=== PATIENT | female | born 1995 | race Caucasian/White ===

== ENCOUNTER 2019-02-20 19:43 | Emergency (ER) | payer BC, OTHER ==
[~2019-02-20] VITALS: Ht 165.1 cm; Wt 63.5 kg
[2019-02-20] MEDS ORDERED: NOHOMEMEDICATIONS (19:55)
[2019-02-20] MEDS ORDERED: NAPROSYN500 M1 PO (20:32)
[2019-02-20] MEDS ORDERED: ULTRAM 50MG TAB50 MG PO (20:32)
[2019-02-20 20:50] VITALS: BP 119/65
== END 2019-02-20 20:50 | disposition home or self-care (01) ==
LOC: ER 19:43
DX: M25.461 Effusion, right knee (principal)